=== PATIENT | male | born 1980 | race Caucasian/White ===

== ENCOUNTER 2020-02-28 10:46 | Emergency (ER) | payer OTHER, SELFPAY ==
--- NOTE | ~2020-02-28 | XR_ITS ---
EXAMINATION: XR chest 2V DATE: 02/28/2020 11:15 INDICATION: Chest pain TECHNIQUE: Portable AP view of the chest at 1110 hours COMPARISON: None available FINDINGS: There are minimal airspace opacities of the right lung base. There is no pleural effusion o r pneumothorax. The cardiomediastinal silhouette is normal. The visualized bones and soft tissues are unremarkable. IMPRESSION: 1. Right basilar airspace opacity, consistent with atelectasis versus pneumonia. Reviewed, dictated and finalized at location A. IMPRESSION: 1. Right basilar airspace opacity, consistent with atelectasis versus pneumonia .
[2020-02-28 10:37] VITALS: PULSE 110; O2SAT 99
[2020-02-28 10:48] VITALS: BP 139/87; PULSE 120; RESP 18; TEMP 37; O2SAT 95
--- NOTE | 2020-02-28 10:54 | ECG_ITS ---
Measurements Intervals [place] Rate: 120 P: 32 KS: 167 QRS: -27 QRSD: 101 T: 28 QT: 315 QTc: 446 Interpretive Statements SINUS TACHYCARDIA BORDERLINE R WAVE PROGRESSION, ANTERIOR LEADS INFERIOR INFARCT, AGE INDETERMINATE ABNORMAL ECG Electronically Signed On 02-28-2020 11:48:44 CDT by Bryce El D.O.
[2020-02-28 11:05] LABS: Basophils Absolute Auto 0.1 K/mm3 (0.0-0.1); Basophils Percent Auto 0.9 % (0.2-1.2); Eosinophils Absolute Auto 0.1 K/mm3 (0-0.3); Hematocrit 44.3 % (42.0-52.0); Immature Granulocyte Absolute 0.07 K/mm3 (0.00-0.031); Immature Granulocyte Percent A 0.9 % (0-0.5); Lymphocytes Absolute Auto 1.89 K/mm3 (0.9-3.2); Lymphocytes Percent Auto 24.5 % (18.3-44.2); Mean Corpuscular HGB Conc 33.9 g/dl (32-36); Mean Corpuscular Hemoglobin 31.3 pg (26-34); Mean Corpuscular Volume 92.3 fl (80-100); Mean Platelet Volume 8.8 fl (7.4-10.4); Monocytes Absolute Auto 0.6 K/mm3 (0.1-0.6); Monocytes Percent Auto 8.2 % (2.6-8.5); Neutrophils Percent Auto 64.5 % (45.5-73.1); Platelet Count Result 273 k/mm3 (150-375); White Blood Count 7.7 K/mm3 (4.5-10.0)
[2020-02-28 11:15] LABS: Partial Thromboplastin Time 25.2 SECONDS (22.3-36.8); Prothrombin Time 13.1 Seconds (11.1-14.7)
[2020-02-28 11:17] LABS: Blood Urea Nitrogen 8 mg/dL (9-20); Calcium 8.7 mg/dL (8.4-10.2); Carbon Dioxide 23 mmol/L (22-30); Chloride 101 mmol/L (98-107); Estimated Glomerular Filt Rate > 60; Glucose 115 mg/dL (75-110); Potassium 4.2 mmol/L (3.4-5.0); Sodium 136 mmol/L (137-145)
[2020-02-28 11:29] LABS: Troponin I < 0.012 ng/mL (0.000-0.034)
--- NOTE | 2020-02-28 13:34 | ED.CHESTPAIN ---
HPI - Chest Pain General Chief Complaint: Chest Pain <Samia Orellana PA-C - Last Filed: 02/28/20 15:16> Stated Complaint: Chest Pain <Samia Orellana PA-C - Last Filed: 02/28/20 15:16> Time Seen by Provider: 02/28/20 11:10 <Samia Orellana PA-C - Last Filed: 02/28/20 15:16> Source: patient <ALETHEA Herrera Last Filed: 02/28/20 15:16> Mode of arrival: EMS <ALETHEA Herrera Last Filed: 02/28/20 15:16> Limitations: no limitations <Samia Orellana PA-C - Last Filed: 02/28/20 15:16> History of Present Illness HPI narrative: Patient presents with chief complaint of chest pain that has been waxing and waning that is midsternal for the past 2 days. Patient states today at approximately 11 AM the pain became greater and he started having tingling in his left fingertips accompanied by dizziness. Patient denies headache, changes in vision or hearing or neurological deficits. Patient denies any radiation of pain to his jaw or left arm. Patient denies history of strokes or heart attacks. He denies family history of strokes or heart attacks. Patient denies having hypertension or smoking cigarettes. Patient denies any chest trauma. Patient denies shortness of breath, diaphoresis, nausea or vomiting. Patient states he was given 324 mg of aspirin to chew via EMS as well as 3 nitroglycerin in route which helped ease his symptoms greatly. He now just reports mild soreness to his chest and tingling to his hands. <ALETHEA Herrera Last Filed: 02/28/20 15:16> Related Data Home Medications: Home Medications Medication Instructions Recorded Confirmed No Home Medications 02/28/20 02/28/20 <ALETHEA Herrera Last Filed: 02/28/20 15:16> Allergies/Adverse Reactions: Allergies Allergy/AdvReac Type Severity Reaction Status Date / Time No Known Allergies Allergy Unverified 02/28/20 10:53 <ALETHEA Herrera Last Filed: 02/28/20 15:16> Review of Systems Review of Systems: Narrative: CONSTITUTIONAL: Denies fever, chills, or sweats. EYES: Denies visual changes, redness, or discharge. ENT: Denies rhinorrhea, congestion, sore throat, or otalgia. CARDIOVASCULAR: Reports chest pain, denies palpitations, or edema. RESPIRATORY: Denies cough or dyspnea. GASTROINTESTINAL: Denies abdominal pain, nausea, vomiting, or diarrhea. GENITOURINARY: Denies dysuria or hematuria. SKIN: Denies rash or itching. MUSCULOSKELETAL: Denies back pain, joint pain, or myalgia. NEUROLOGIC: reports left hand tingling Denies headache, numbness, dizziness, or weakness. PSYCHIATRIC: Denies anxiety or depression. <Samia Orellana PA-C - Last Filed: 02/28/20 15:16> [facility] Family History Family History: Family History (Updated 06/28/16 @ 23:21 by DOCTOR UNKNOWN) Mother Patient's mother is in good health Father Patient's father is in good health <Samia Orellana PA-C - Last Filed: 02/28/20 15:16> Social History Social History: Social History Smoking status: Never smoker Alcohol intake: current <ALETHEA Herrera Last Filed: 02/28/20 15:16> Exam Narrative: Exam Narrative: GENERAL: Well-appearing, well-nourished, and in no acute distress. HEAD: Normocephalic, atraumatic. EYES: PERRLA and EOMI. ENT: Nares clear, no rhinorrhea or epistaxis. Mucous membranes moist. Oropharynx without tonsillar hypertrophy exudate or other lesions. Bilateral TMs pearly vogt nonbulging NECK: Supple. No adenopathy or masses. No carotid bruits or JVD CHEST: Clear to auscultation. No respiratory distress. No wheezes rales or rhonchi. Not tachypneic HEART: Regular rate and rhythm. No murmur heard. Normal peripheral pulses. EXTREMITIES: Normal range of motion. No edema. No weakness noted. SKIN: Warm, dry, no rash. NEURO: No focal deficits. Alert and oriented x3. PSYCH: Normal mood and affect. <Samia Orellana PA-C - Last Filed: 02/28/20 15:16> Course Vital Signs Vital signs
[2020-02-28 14:25] LABS: Troponin I < 0.012 ng/mL (0.000-0.034)
--- NOTE | 2020-02-28 15:15 | PC.NURSE ---
denied cp at this time provider aware
[2020-02-28 15:40] VITALS: BP 156/90; PULSE 108; RESP 16; O2SAT 99
== END 2020-02-28 15:40 | disposition home or self-care (01) ==
PROVIDERS: Emergency Provider Emergency Medicine; PCP Internal Medicine
DX: R07.2 Precordial pain (principal); R00.0 Tachycardia, unspecified; R94.31 Abnormal electrocardiogram [ECG] [EKG]
CPT/HCPCS: 36415; 71046; 80048; 84484; 85025; 85610; 85730; 93005; 99284

== ENCOUNTER 2025-05-05 07:48 | Outpatient (CLI) | payer OTHER, SELFPAY ==
--- NOTE | ~2025-05-05 | US_ITS ---
Limited Abdominal Sonogram: Real-time sonographic imaging of the right upper quadrant was performed. Clinical History: Abnormal blood chemistry findings Findings: The liver appears echogenic, with no evidence of mass lesion or bile duct dilatation. Main portal vein demonstrates normal direction of flow. The gallbladder is well distended, and appears no rmal with no evidence of gallstone or wall thickening. The common bile duct measures 3 mm. The visua lized pancreas, aorta, and IVC are unremarkable. Impression: Diffuse fatty infiltration of the liver. Reviewed, dictated and finalized at location M. Impression: Diffuse fatty infiltration of the liver.
== END 2025-05-05 07:49 | disposition home or self-care (01) ==
PROVIDERS: PCP Internal Medicine; Visit Provider Internal Medicine
DX: R79.89 Other specified abnormal findings of blood chemistry (principal); K76.0 Fatty (change of) liver, not elsewhere classified
CPT/HCPCS: 76705

== ENCOUNTER 2025-08-23 20:36 | Observation (INO) | payer OTHER, SELFPAY ==
--- NOTE | ~2025-08-23 | XR_ITS ---
Examination: XR chest 1V portable Clinical History: epigastric pain, ulcer Comparison: 02/28/2020 Technique: Portable AP Findings: Heart size normal. Lungs clear. No acute bony abnormality. IMPRESSION: 1. No acute cardiopulmonary findings given portable technique. Reviewed, dictated and finalized at location R.
[2025-08-23 20:38] VITALS: BP 149/105; PULSE 115; RESP 18; TEMP 36.7; O2SAT 100
--- NOTE | 2025-08-23 20:42 | ECG_ITS ---
Test Date: 2025-08-23 20:45:03 Measurements Intervals [place] Rate: 98 P: 52 [place]: 150 QRS: 3 QRSD: 99 T: 39 QT: 335 QTc: 428 Interpretive Statements SINUS RHYTHM NORMAL ELECTROCARDIOGRAM No previous ECG available for comparison Electronically Signed On 08-24-2025 07:29:12 CDT by Scott Arrieta M.D.
[2025-08-23 21:01] LABS: Hematocrit 33.6 % (42.0-52.0); Hemoglobin 11.5 g/dL (14.0-18.0); Immature Granulocyte Percent A 1.1 % (0-0.5); Lymphocytes Absolute Auto 2.02 K/mm3 (0.9-3.2); Mean Corpuscular HGB Conc 34.2 g/dl (32-36); Mean Corpuscular Hemoglobin 31.9 pg (26-34); Mean Corpuscular Volume 93.3 fl (80-100); Nucleated Red Blood Cells Absolute Auto 0.000 K/mm3 (0.0-0.012); Nucleated Red Blood Cells Perc 0.0 % (0.0-0.2); Platelet Count Result 333 k/mm3 (150-375); Red Blood Count 3.60 M/mm3 (4.6-6.20); White Blood Count 12.2 K/mm3 (4.5-10.0)
[2025-08-23 21:06] LABS: Alanine Aminotransferase 37 U/L (6-50); Albumin Level 4.4 g/dL (3.5-5.1); Alkaline Phosphatase 77 U/L (38-126); Anion Gap 9 mmol/L (4-12); Aspartate Amino Transferase 35 U/L (17-59); Bilirubin,Total 0.3 mg/dL (0.2-1.3); Blood Urea Nitrogen 10 mg/dL (9-20); Calcium 9.3 mg/dL (8.4-10.2); Carbon Dioxide 25 mmol/L (22-30); Chloride 101 mmol/L (98-107); Estimated CRCL calculation 113 ml/min; Estimated Glomerular Filt Rate > 60; Glucose 109 mg/dL (65-110); Potassium 4.2 mmol/L (3.4-5.0); Sodium 135 mmol/L (137-145); Total Protein 7.5 g/dL (6.3-8.2)
[2025-08-23 21:11] LABS: INR 1.1; Prothrombin Time 14.3 Seconds (11.1-14.7)
[2025-08-23 21:12] LABS: Partial Thromboplastin Time 27.6 Seconds (22.3-36.8)
[2025-08-23 21:18] LABS: Troponin I < 0.012 ng/mL (0.000-0.034)
--- NOTE | 2025-08-23 23:40 | ECG_ITS ---
Test Date: 2025-08-23 23:48:24 Measurements Intervals [place] Rate: 75 P: 36 CT: 163 QRS: 7 QRSD: 90 T: 27 QT: 383 QTc: 430 Interpretive Statements SINUS RHYTHM NORMAL ELECTROCARDIOGRAM Compared to ECG 08/23/2025 20:45:03 No significant changes Electronically Signed On 08-24-2025 07:32:25 CDT by Scott Arrieta M.D.
[2025-08-23 23:54] VITALS: BP 133/87; PULSE 81; RESP 18; TEMP 36.9; O2SAT 100
[2025-08-24] VITALS (19 sets, daily range): BP systolic 112–153; BP diastolic 67–99; PULSE 67–95; RESP 15–23; TEMP 35.9–36.9; O2SAT 96–100; BMI 24.8
--- OUTSIDE RECORDS SUMMARY | 2025-08-24 00:15 | XMS_ITS | Patient Health Record ---
Author Organization [facility] Address [address] [place] [address] Care Team Providers Care Wood Sawyer Name Role Phone Moy Farooq Primary Care Provider [phone] Reason For Referral No Information Immunizations Vaccine Route Administration Date Status Comme nts COVID-19 Moderna 1ST IM Intramuscular 02/08/2021 Administe red COVID-19 Moderna 2nd IM Intramuscular 03/08/2021 Administe red Plan Of Treatment No Information Insurance Providers Payer Name Payer Address Payer Phone Subscriber Number Group Number Insured Name Patient Relationship to Insured Coverage Start Date Coverage End Date [facility] [address] [place] [address] [id number] Harry Romero Self - patient is the insured
[2025-08-24 00:23] LABS: Troponin I < 0.012 ng/mL (0.000-0.034)
[2025-08-24] MEDS: PANTOPRAZOLE SODIUM IV 40 MG VIAL 80 MG IV PUSH (00:28)
[2025-08-24] MEDS: LACTATED RINGERS 1,000 ML 999 ML IV CONT (00:28)
[2025-08-24] MEDS: SUCRALFATE SUSP 100 MG/ML 10 ML UDC 1000 MG PO (01:34)
[2025-08-24] MEDS: LACTATED RINGERS 1,000 ML 125 ML IV CONT ×3 (01:41→16:53)
--- NOTE | 2025-08-24 01:48 | PM.IMHP ---
H&P: HPI History of Present Illness Date/Time: 08/24/25 01:48 Chief Complaint: Dark stool Narrative: 45-year-old male with PMH alcohol use, GERD, hypertension, history of transaminitis presents to [facility] ER on 08/24/2025 reporting dark stools starting 3 days prior. He has never had this before, does not know of peptic ulcer disease history, has never had endoscopy. On the day of admission developed burning and pain on the left side of his stomach just below the ribs. He did not vomit, denied fever, denied chest pain otherwise. Hemoglobin 11.5, it was 16.1 on 04/07/2025. At that time he had mild transaminitis with AST 50, ALT 50, was seen by his PCP who believed this to be due to alcohol use. The patient reports drinking about 4 beers per day. He has a history of GERD but does not take a PPI. GI consulted from the ER. He was given Protonix 80 mg IV x1, 1 L lactated Ringer bolus, sucralfate 1000 mg p.o. x1. Afterwards, his pain had resolved and he was resting comfortably. Review of Systems Review of Systems: All systems reviewed & are unremarkable except as noted in HPI and below (Subjective) [facility] Family History Family History Mother Patient's mother is in good health Father Patient's father is in good health Social History Social History (Updated 04/02/23 @ 15:07 by Haley Wayne MA) Smoking status: Never smoker Second hand tobacco smoke exposure: No Alcohol intake: current Drinks per week: 28 Substance use: never Lack of Transportation: No Lack of Food: Never True Current Housing: I Have Housing Concerned About Future Housing: No Difficulty Paying Gas/Electric Bills: No Difficulty Paying for Meds: No Currently Unemployed: No Education: Bachelor's Degree Difficulty w/ Childcare or Family Care: No Meds Home Medications and Allergies Home Medications ?Medication ?Instructions ?Recorded ?Confirmed ?Type lisinopril 20 mg tablet 20 mg PO DAILY #90 tabs 12/08/24 04/17/25 Rx Allergies Allergy/AdvReac Type Severity Reaction Status Date / Time No Known Allergies Allergy Verified 04/13/24 15:09 Vital Signs Vital Signs - 24 hr 08/23/25 20:38 08/23/25 23:54 Temperature 98.1 F 98.4 F Pulse Rate 115 H 81 Respiratory Rate 18 18 Blood Pressure 149/105 H 133/87 Pulse Oximetry 100 100 Oxygen Delivery Room Air Exam Const: General: comfortable and no acute distress Other: A&O x3 HENMT: Mouth: Yes moist mucous membranes Other: No lesions Eyes: Pupils: Equal, round and reactive pupils present Neck: Neck: supple Resp: Effort & Inspection: normal respiratory effort Auscultation: clear to auscultation bilaterally Cardio: Rate: regular rate Rhythm: regular rhythm Heart sounds: no murmurs GI: Inspection: non-distended GI Palp: Yes Soft to palpation, No Tenderness to palpation present (GI) and No Guarding due to palpation present (GI) Auscultation: normal bowel sounds : General: Yes bladder normal to palpation Neuro: Motor exam (neuro): 5/5 motor strength present throughout Extrem: General: no edema H&P: Results Labs Labs: Short CBC 08/23/25 Range/Units 20:49 WBC 12.2 H (4.5-10.0) K/mm3 Hgb 11.5 L D (14.0-18.0) g/dL Hct 33.6 L (42.0-52.0) % Plt Count 333 (150-375) k/mm3 BMP 08/23/25 20:49 Sodium 135 L Potassium 4.2 Chloride 101 Carbon Dioxide 25 BUN 10 Creatinine 0.80 Glucose 109 Calcium 9.3 Cardiac Enzymes 08/23/25 08/23/25 Range/Units 20:49 23:53 Troponin I < 0.012 < 0.012 (0.000-0.034) ng/mL Liver Function 08/23/25 Range/Units 20:49 Total Bilirubin 0.3 (0.2-1.3) mg/dL AST 35 (17-59) U/L ALT 37 (6-50) U/L Alkaline Phosphatase 77 (38-126) U/L Albumin 4.4 (3.5-5.1) g/dL Assessment and Plan Assessment and plan (1) Alcohol use: Code(s): F10.90 - Alcohol use, unspecified, uncomplicated Status: Acute (2) Essential hypertension: Code(s): I10 - Essential (primary) hypertension Status: Acute (3) Upper GI bleed: Code(s): K92.2 - Gastrointestinal hemorrhage, unspecified Status: Acute (4) Anemia: Code(s): D64.9 - Anemia, unspecified Status: Acute Plan 45-year-old male with PMH alcohol use, GERD, hypertension, history of transaminitis presents to [facility] ER on 08/24/2025 reporting dark stools starting 3 days prior. He has never had this before, does not know of peptic ulcer disease history, has never had endoscopy. On the day of admission developed burning and pain on the left side of his stomach just below the ribs. He did not vomit, denied fever, denied chest pain otherwise. Hemoglobin 11.5, it was 16.1 on 04/07/2025. At that time he had mild transaminitis with AST 50, ALT 50, was seen by his PCP who believed this to be due to alcohol use. The patient reports drinking about 4 beers per day. He has a history of GERD but does not take a PPI. GI consulted from the ER. He was given Protonix 80 mg IV x1, 1 L lactated Ringer bolus, sucralfate 1000 mg p.o. x1. Afterwards, his pain had resolved and he was resting comfortably. ----- Upper GI bleed with acute/subacute anemia. Continue to trend hemoglobin. Continue Protonix 40 mg IV b.i.d.. Continue lactated Ringer's at 125 cc/hour. Zofran and Tylenol p.r.n.. NPO, awaiting GI consultation, anticipate endoscopy. Admit to medical floor telemetry. The patient has been counseled about his alcohol use. Advised to cut down or abstain entirely, the patient reported understanding and agreed. He does not take NSAIDs. Will hold his [employer] lisinopril in the setting of GI bleed. Monitor hemodynamics. ----- Patient wishes to be full code. Independent prior to admission. Lactated Ringer's, NPO. SCDs. Hospitalist [facility] Advance Care Plan I have confirmed that the patient's Advanced Care Plan is present, code status is documented, or surrogate decision maker is listed in patient medical record.: Yes Medication Reconciliation I have utilized all available resources to obtain, update and review the patients current medications (includes all prescriptions, OTC, herbals, cannabis, and nutritional supplements).: Yes
[2025-08-24 01:57] LABS: Hematocrit 30.6 % (42.0-52.0); Hemoglobin 10.5 g/dL (14.0-18.0)
--- NOTE | 2025-08-24 01:57 | ED_ITS ---
HPI - GI Bleed General Chief complaint: GI Bleed Stated complaint: bleeding ulcer Time Seen by Provider: 08/24/25 00:07 History of Present Illness HPI Narrative: 45-year-old male with no pertinent past medical history presenting to the emergency department with epigastric left-sided abdominal discomfort associated with eating. He has also been having 4 days of dark tarry stools that are thick and sticky in quality. No history of GI bleeding before. He does endorse ?social drinking ?but endorses up to 4 beers a day. Denies any NSAID use or any chronic anti-inflammatories or chronic gastritis/GERD. Has been having indigestion sensations for last few weeks associated with eating. States whenever eat a meal he gets gnawing epigastric abdominal discomfort that slowly subsides. Went to urgent care yesterday as he was feeling lightheaded and dizzy while driving and was found to be anemic referred to the emergency department. Denies any history of GI bleeding or known ulcerative disease. Was otherwise in his normal state of health. Related Data Allergies Allergy/AdvReac Type Severity Reaction Status Date / Time No Known Allergies Allergy Verified 04/13/24 15:09 Review of Systems 2 Review of Systems: As reviewed above in HPI [facility] Family History Family History Mother Patient's mother is in good health Father Patient's father is in good health Social History Social History Smoking status: Never smoker Second hand tobacco smoke exposure: No Alcohol intake: current Drinks per week: 28 Substance use: never Lack of Transportation: No Lack of Food: Never True Current Housing: I Have Housing Concerned About Future Housing: No Difficulty Paying Gas/Electric Bills: No Difficulty Paying for Meds: No Currently Unemployed: No Education: Bachelor's Degree Difficulty w/ Childcare or Family Care: No Exam 2 Narrative: GENERAL: [Well-appearing, well-nourished, and in no acute distress.] HEAD: [Normocephalic, atraumatic.] EYES: [PERRLA and EOMI.] ENT: Nares clear, no rhinorrhea or epistaxis. Mucous membranes moist. NECK: Supple. CHEST: [Clear to auscultation. No respiratory distress.] HEART: Mildly tachycardic but regular rhythm. No murmur heard. [Normal peripheral pulses.] ABDOMEN: [Soft, nondistended], [nontender], [No rigidity or guarding] EXTREMITIES: Normal range of motion. [No edema.] SKIN: Warm, dry, no rash. NEURO: [No focal deficits]. Alert and oriented [x3.] PSYCH: [Normal mood and affect.] Course Vital Signs Vital signs: Vital Signs Temperature 36.7 C 08/23/25 20:38 Pulse Rate 115 H 08/23/25 20:38 Respiratory Rate 18 08/23/25 20:38 Blood Pressure 149/105 H 08/23/25 20:38 Pulse Oximetry 100 08/23/25 20:38 Oxygen Delivery Room Air 08/23/25 20:38 Temperature 36.9 C 08/23/25 23:54 Pulse Rate 81 08/23/25 23:54 Respiratory Rate 18 08/23/25 23:54 Blood Pressure 133/87 08/23/25 23:54 Pulse Oximetry 100 08/23/25 23:54 Oxygen Delivery Room Air 08/23/25 20:38 MDM - GI Bleed MDM Narrative Medical decision making narrative: 45-year-old male with no pertinent past medical history presenting to the emergency department with epigastric left-sided abdominal discomfort associated with eating. He has also been having 4 days of dark tarry stools that are thick and sticky in quality. No history of GI bleeding before. He does endorse ?social drinking ?but endorses up to 4 beers a day. Denies any NSAID use or any chronic anti-inflammatories or chronic gastritis/GERD. Has been having indigestion sensations for last few weeks associated with eating. States whenever eat a meal he gets gnawing epigastric abdominal discomfort that slowly subsides. Went to urgent care yesterday as he was feeling lightheaded and dizzy while driving and was found to be anemic referred to the emergency department. Denies any history of GI bleeding or known ulcerative disease. Was otherwise in his normal state of health. Patient is overall well-appearing not any acute distress. Rates 1 at 10 epigastric abdominal discomfort right now. Mildly tachycardic but no significant blood pressure concerns, hemodynamically stable. No tachypnea, hypoxemia or fever. Symptoms very consistent with peptic ulcer disease or bleeding duodenal/gastric ulcer. Likely from alcohol abuse. Basic laboratory studies were ordered he was given Protonix 80 mg IV as well as fluids. Sucralfate ordered. Patient's labs show anemia but otherwise no cardiac abnormalities, normal troponin. No EKG changes. No significant leukocytosis or liver/kidney dysfunction. Hemoglobin 11.5 which is a precipitous drop from his previous normal hemoglobin to the 15-16 range. Repeating H&H and trending his levels. Discussed the case with pulmonary physical therapist Dr. Finch who agreed for endoscopy on inpatient basis based on history and physical exam findings. Spoke to the hospitalist Dr. Lane who accepted the patient to a telemetry monitored bed with repeat H&H pending. Patient comfortable the plan and safely admitted at this time. Medical Records Attestation: I reviewed the patient's medical records. Lab Data Attestation: I reviewed the patient's lab results. 08/23/25 20:49 08/23/25 20:49 Labs: Lab Results 08/23/25 08/23/25 Range/Units 20:49 23:53 WBC 12.2 H (4.5-10.0) K/mm3 RBC 3.60 L (4.6-6.20) M/mm3 Hgb 11.5 L D (14.0-18.0) g/dL Hct 33.6 L (42.0-52.0) % MCV 93.3 (80-100) fl MCH 31.9 (26-34) pg MCHC 34.2 (32-36) g/dl RDW 12.3 (11.5-14.5) % Plt Count 333 (150-375) k/mm3 MPV 9.0 (7.4-10.4) fl Immature Gran % (Auto) 1.1 H (0-0.5) % Neut % (Auto) 73.5 H (45.5-73.1) % Lymph % (Auto) 16.6 L (18.3-44.2) % [place] % (Auto) 7.6 (2.6-8.5) % Eos % (Auto) 0.5 (0-4.4) % Baso % (Auto) 0.7 (0.2-1.2) % Lymph # (Auto) 2.02 (0.9-3.2) K/mm3 [place] # (Auto) 0.9 H (0.1-0.6) K/mm3 Eos # (Auto) 0.1 (0-0.3) K/mm3 Baso # (Auto) 0.1 (0.0-0.1) K/mm3 Abs Immat Gran (auto) 0.14 H (0.00-0.031) K/mm3 Absolute Neuts (auto) 9.0 H (1.3-6.7) K/mm3 Absolute Nucleated RBC 0.000 (0.0-0.012) K/mm3 Nucleated RBC % 0.0 (0.0-0.2) % PT 14.3 (11.1-14.7) Seconds INR 1.1 APTT 27.6 (22.3-36.8) Seconds Sodium 135 L (137-145) mmol/L Potassium 4.2 (3.4-5.0) mmol/L Chloride 101 (98-107) mmol/L Carbon Dioxide 25 (22-30) mmol/L Anion Gap 9 (4-12) mmol/L BUN 10 (9-20) mg/dL Creatinine 0.80 (0.7-1.3) mg/dL Estim Creat Clear Calc 113 ml/min Estimated GFR > 60 (59 - ) Glucose 109 (65-110) mg/dL Calcium 9.3 (8.4-10.2) mg/dL Total Bilirubin 0.3 (0.2-1.3) mg/dL AST 35 (17-59) U/L ALT 37 (6-50) U/L Alkaline Phosphatase 77 (38-126) U/L Troponin I < 0.012 < 0.012 (0.000-0.034) ng/mL Total Protein 7.5 (6.3-8.2) g/dL Albumin 4.4 (3.5-5.1) g/dL Blood Type O Positive Antibody Screen Negative Imaging Data Attestation: I personally reviewed and interpreted this imaging study as follows: My impression: No free air or pneumonia. No pneumothorax. Discharge Plan Discharge Clinical Impression: UGIB (upper gastrointestinal bleed), Acute blood loss anemia Patient Disposition: Still a Patient Condition: Stable Time of Disposition: 02:01
[2025-08-24 06:07] LABS: Hematocrit 31.1 % (42.0-52.0); Hemoglobin 10.6 g/dL (14.0-18.0); Immature Granulocyte Percent A 1.0 % (0-0.5); Lymphocytes Absolute Auto 1.94 K/mm3 (0.9-3.2); Mean Corpuscular HGB Conc 34.1 g/dl (32-36); Mean Corpuscular Hemoglobin 32.1 pg (26-34); Mean Corpuscular Volume 94.2 fl (80-100); Nucleated Red Blood Cells Absolute Auto 0.000 K/mm3 (0.0-0.012); Nucleated Red Blood Cells Perc 0.0 % (0.0-0.2); Platelet Count Result 287 k/mm3 (150-375); Red Blood Count 3.30 M/mm3 (4.6-6.20); White Blood Count 8.2 K/mm3 (4.5-10.0)
[2025-08-24 06:27] LABS: Anion Gap 4 mmol/L (4-12); Blood Urea Nitrogen 9 mg/dL (9-20); Calcium 8.8 mg/dL (8.4-10.2); Carbon Dioxide 27 mmol/L (22-30); Chloride 104 mmol/L (98-107); Estimated CRCL calculation 102 ml/min; Estimated Glomerular Filt Rate > 60; Glucose 101 mg/dL (65-110); Magnesium 2.3 mg/dL (1.6-2.3); Potassium 4.5 mmol/L (3.4-5.0); Sodium 135 mmol/L (137-145)
--- NOTE | 2025-08-24 08:03 | P.CONGI_ITS ---
Assessment and Plan Assessment and plan (1) UGIB (upper gastrointestinal bleed): Code(s): K92.2 - Gastrointestinal hemorrhage, unspecified Status: Acute Assessment and Plan: will proceed with egd today, differential ulcer, avm, esophageal lesion (he had some dysphagia) iv protonix and fluids for now monitor for more signs of bleeding more recommendations after egd (2) Melena: Code(s): K92.1 - Melena Status: Acute Assessment and Plan: egd markus (3) Esophageal reflux disease: Code(s): K21.9 - Gastro-esophageal reflux disease without esophagitis Status: Acute (4) Acute blood loss anemia: Code(s): D62 - Acute posthemorrhagic anemia Status: Acute Assessment and Plan: egd today never had colonoscopy, we can arrange as outpatient (5) Alcohol use: Code(s): F10.90 - Alcohol use, unspecified, uncomplicated Status: Acute (6) Essential hypertension: Code(s): I10 - Essential (primary) hypertension Status: Acute GI Consult Note Consult date/time: 08/24/25 08:03 Reason for consult: gib HPI: Harry Romero is a 45 year old male with history of hypertension on med here with new onset of dark tarry stools. This started 3 days prior. He has never had this before, does not know of peptic ulcer disease history, has never had endoscopy. Also was feeling dizzy and lightheaded, he had about 3 episodes one each day and having dyspepsia and abdominal discomfort. He has intermittent reflux but not taking any medication, in few occasions also had dysphagia to solids. ER showed Hemoglobin 11.5, it was 16.1 on 04/07/2025. At that time he had mild transaminitis with AST 50, ALT 50, was seen by his PCP who believed this to be due to alcohol use. He drinks about 4 beers per day. He was given Protonix 80 mg IV x1, 1 L lactated Ringer bolus, sucralfate 1000 mg p.o. x1. Review of Systems 2 Constitutional: Constitutional: Denies headache(s) Eyes: Eyes: Denies blurry vision ENT: Reports Normal hearing present, Denies headache(s) and Denies neck pain Cardiovascular: Cardiovascular: Denies chest pain and Denies dyspnea Respiratory: Respiratory: Denies dyspnea Gastrointestinal: Gastrointestinal: Reports melena Genitourinary: Genitourinary: Denies dysuria Musculoskeletal: Musculoskeletal: Denies neck pain Integumentary/Breasts: Skin/Breast: Denies dry skin Neurologic: Reports Normal hearing present and Denies headache(s) [facility] Past Medical History Medical History (Updated 08/24/25 @ 08:07 by Raffi Merritt MD) Melena Family History Family History Mother Patient's mother is in good health Father Patient's father is in good health Social History Social History Smoking status: Never smoker Second hand tobacco smoke exposure: No Alcohol intake: current Drinks per week: 28 Substance use: never Lack of Transportation: No Lack of Food: Never True Current Housing: I Have Housing Concerned About Future Housing: No Difficulty Paying Gas/Electric Bills: No Difficulty Paying for Meds: No Currently Unemployed: No Education: Bachelor's Degree Difficulty w/ Childcare or Family Care: No Meds Home Medications and Allergies Home Medications ?Medication ?Instructions ?Recorded ?Confirmed ?Type lisinopril 20 mg tablet 20 mg PO DAILY #90 tabs 07/2504/17/25 Rx Allergies Allergy/AdvReac Type Severity Reaction Status Date / Time No Known Allergies Allergy Verified 04/13/24 15:09 Vital Signs Vital Signs - 24 hr 08/23/25 20:38 08/23/25 23:54 08/24/25 02:24 Temperature 98.1 F 98.4 F Pulse Rate 115 H 81 88 Respiratory Rate 18 18 18 Blood Pressure 149/105 H 133/87 112/81 Pulse Oximetry 100 100 99 Oxygen Delivery Room Air 08/24/25 04:00 08/24/25 05:55 Temperature 97.5 F L Pulse Rate 89 95 Respiratory Rate 18 18 Blood Pressure 121/76 122/77 Pulse Oximetry 99 100 Oxygen Delivery Exam 2 Const: General: comfortable and no acute distress HENMT: Face/Nose/Sinus: Normal nares present Eyes: General: appearance normal, both eyes and all related structures Neck: Neck: no JVD Resp: Auscultation: clear to auscultation bilaterally Cardio: Rate: regular rate Rhythm: regular rhythm GI: Inspection: non-distended GI Palp: Yes Soft to palpation Skin: General skin exam: normal color Neuro: General: gait normal Speech: normal speech Extrem: General: normal to inspection Psych: Mental Status: mental status grossly normal Results Labs 08/24/25 05:58 08/24/25 05:58 Labs: Short CBC 08/23/25 08/24/25 08/24/25 Range/Units 20:49 01:52 05:58 WBC 12.2 H 8.2 (4.5-10.0) K/mm3 Hgb 11.5 L D 10.5 L 10.6 L (14.0-18.0) g/dL Hct 33.6 L 30.6 L 31.1 L (42.0-52.0) % Plt Count 333 287 (150-375) k/mm3 [facility] 08/23/25 08/24/25 20:49 05:58 Sodium 135 L 135 L Potassium 4.2 4.5 Chloride 101 104 Carbon Dioxide 25 27 BUN 10 9 Creatinine 0.80 0.89 Glucose 109 101 Calcium 9.3 8.8 Cardiac Enzymes 08/23/25 08/23/25 Range/Units 20:49 23:53 Troponin I < 0.012 < 0.012 (0.000-0.034) ng/mL Liver Function 08/23/25 Range/Units 20:49 Total Bilirubin 0.3 (0.2-1.3) mg/dL AST 35 (17-59) U/L ALT 37 (6-50) U/L Alkaline Phosphatase 77 (38-126) U/L Albumin 4.4 (3.5-5.1) g/dL
--- NOTE | 2025-08-24 08:34 | P.PNIM_ITS ---
Progress Note: A&P Assessment and Plan (1) Upper GI bleed: Code(s): K92.2 - Gastrointestinal hemorrhage, unspecified Status: Acute Assessment and Plan: * Continue to trend hemoglobin * Continue Protonix 40 mg IV b.i.d. * Continue lactated Ringer's at 125 cc/hour * Zofran and Tylenol p.r.n * Monitor for bloody bowel movements,chest pain,SOB or dizziness/lightheadedness * DVT Px: SCDs * Avoid anti-coagulations * NPO for EGD * EGD results: * Reflux esophagitis, hiatal hernia, unspecified gastric ulcer * GI recommends switching IV to oral pantoprazole 40 mg daily * Follow-up GI clinic in the outpatient setting * Avoid caffeine, spicy foods, chocolate, mints, alcohol, rich foods, red sauces * Discharge likely tomorrow (2) Anemia: Code(s): D64.9 - Anemia, unspecified Status: Acute Assessment and Plan: * See above (3) Alcohol use: Code(s): F10.90 - Alcohol use, unspecified, uncomplicated Status: Acute Assessment and Plan: * The patient has been counseled about his alcohol use. Advised to cut down or abstain entirely, the patient reported understanding and agreed. (4) Essential hypertension: Code(s): I10 - Essential (primary) hypertension Status: Acute Assessment and Plan: * Patient's blood pressure was reviewed on 08/24 * Blood pressure remains well controlled * Will hold his [employer] lisinopril in the setting of GI bleed Subjective Date/time seen: 08/24/25 08:34 Interval history: 45-year-old male with PMH alcohol use, GERD, hypertension, history of transaminitis presents to [facility] ER on 08/24/2025 reporting dark stools starting 3 days prior. He has never had this before, does not know of peptic ulcer disease history, has never had endoscopy. 08/24/2025 Patient sitting comfortably in bed at time of examination. Patient just recently came back from obtaining an EGD which showed severe erosive esophagitis. He is doing well postprocedure. They recommend switching IV to oral pantoprazole 40 mg once daily with discharge tomorrow. Patient is amenable to this plan and has no concerns at this time. Review of Systems Review of Systems: All systems reviewed & are unremarkable except as noted in HPI and below (Subjective) Exam Const: General: comfortable and no acute distress Other: A&O x3 HENMT: Mouth: Yes moist mucous membranes Other: No lesions Eyes: Pupils: Equal, round and reactive pupils present Neck: Neck: supple Resp: Effort & Inspection: normal respiratory effort Auscultation: clear to auscultation bilaterally Cardio: Rate: regular rate Rhythm: regular rhythm Heart sounds: no murmurs GI: Inspection: non-distended Auscultation: normal bowel sounds : General: Yes bladder normal to palpation Neuro: Cranial nerves: Yes Equal, round and reactive pupils present Motor exam (neuro): 5/5 motor strength present throughout Extrem: General: no edema Objective Data Vital Signs Vital Signs: Vital Signs - 24 hr 08/23/25 20:38 08/23/25 23:54 08/24/25 02:24 Temperature 98.1 F 98.4 F Pulse Rate 115 H 81 88 Respiratory Rate 18 18 18 Blood Pressure 149/105 H 133/87 112/81 Pulse Oximetry 100 100 99 Oxygen Delivery Room Air 08/24/25 04:00 08/24/25 05:55 Temperature 97.5 F L Pulse Rate 89 95 Respiratory Rate 18 18 Blood Pressure 121/76 122/77 Pulse Oximetry 99 100 Oxygen Delivery Intake/Output Intake/Output: Intake & Output 08/21/25 08/22/25 08/23/25 08/24/25 23:59 23:59 23:59 23:59 Intake Total 1999 Balance 1999 Meds/Results Medications: Active Medications Generic Name Dose Route Start Last Admin Trade Name Freq PRN Reason Stop Dose Admin Acetaminophen 650 mg 08/24/25 01:19 Acetaminophen 325 Mg Tablet PO Q4H PRN Mild Pain (1-3) or Fever Lactated Ringer's 1,000 mls @ 125 mls/hr 08/24/25 01:20 08/24/25 06:24 Lr - Lactated Ringers Iv IV CONT Infused .Q8H LETY Infusion Ondansetron HCl 4 mg 08/24/25 01:19 Ondansetron Inj 4 Mg/2 Ml Vial IV PUSH Q4H PRN Nausea Pantoprazole Sodium 40 mg 08/24/25 09:00 Pantoprazole Sodium Iv 40 Mg Vial IV PUSH Q12HR [facility] Radiology Results: ITS Impressions Chest X-Ray 08/24/25 06:15 IMPRESSION: 1. No acute cardiopulmonary findings given portable technique. Labs Labs: Laboratory Results - last 24 hr 08/23/25 08/23/25 08/24/25 20:49 23:53 01:52 WBC 12.2 H RBC 3.60 L Hgb 11.5 L D 10.5 L Hct 33.6 L 30.6 L MCV 93.3 MCH 31.9 MCHC 34.2 RDW 12.3 Plt Count 333 MPV 9.0 Immature Gran % (Auto) 1.1 H Neut % (Auto) 73.5 H Lymph % (Auto) 16.6 L [place] % (Auto) 7.6 Eos % (Auto) 0.5 Baso % (Auto) 0.7 Lymph # (Auto) 2.02 [place] # (Auto) 0.9 H Eos # (Auto) 0.1 Baso # (Auto) 0.1 Abs Immat Gran (auto) 0.14 H Absolute Neuts (auto) 9.0 H Absolute Nucleated RBC 0.000 Nucleated RBC % 0.0 PT 14.3 INR 1.1 APTT 27.6 Sodium 135 L Potassium 4.2 Chloride 101 Carbon Dioxide 25 Anion Gap 9 BUN 10 Creatinine 0.80 Estim Creat Clear Calc 113 Estimated GFR > 60 Glucose 109 Calcium 9.3 Magnesium Total Bilirubin 0.3 AST 35 ALT 37 Alkaline Phosphatase 77 Troponin I < 0.012 < 0.012 Total Protein 7.5 Albumin 4.4 Blood Type O Positive Antibody Screen Negative 08/24/25 05:58 WBC 8.2 RBC 3.30 L Hgb 10.6 L Hct 31.1 L MCV 94.2 MCH 32.1 MCHC 34.1 RDW 12.3 Plt Count 287 MPV 8.8 Immature Gran % (Auto) 1.0 H Neut % (Auto) 63.6 Lymph % (Auto) 23.6 [place] % (Auto) 9.5 H Eos % (Auto) 1.3 Baso % (Auto) 1.0 Lymph # (Auto) 1.94 [place] # (Auto) 0.8 H Eos # (Auto) 0.1 Baso # (Auto) 0.1 Abs Immat Gran (auto) 0.08 H Absolute Neuts (auto) 5.2 Absolute Nucleated RBC 0.000 Nucleated RBC % 0.0 PT INR APTT Sodium 135 L Potassium 4.5 Chloride 104 Carbon Dioxide 27 Anion Gap 4 BUN 9 Creatinine 0.89 Estim Creat Clear Calc 102 Estimated GFR > 60 Glucose 101 Calcium 8.8 Magnesium 2.3 Total Bilirubin AST ALT Alkaline Phosphatase Troponin I Total Protein Albumin Blood Type Antibody Screen Quality VTE Prophylaxis VTE prophylaxis: mechanical ordered
[2025-08-24] MEDS: PANTOPRAZOLE SODIUM IV 40 MG VIAL IV PUSH (09:39)
--- NOTE | 2025-08-24 12:43 | ADMGEN ---
This patient, Harry Romero, was admitted to 3 [facility] Surg Room 300-01. Patient/family oriented to hospital policies and general routines including ID bracelet, bed and alarms, visiting hours, pain management, procedures, bathroom and other care routines, personal items, smoking policy, room service/diet, and visiting hours. Information on how to activate the Rapid Response Team has been discussed. Patient/Family are encouraged to report perceived risks to care and to ask questions if they do not understand what they are told or what they should do.
[2025-08-24] MEDS: LACTATED RINGERS 1,000 ML 150 ML IV CONT (13:55)
--- NOTE | 2025-08-24 14:01 | WPDANESEPPF ---
Anes - Initial Pre Proc Eval Procedure: Operation Date: 08/24/25 11:30 Proposed Procedures p Esophagogastroduodenoscopy - Anoop Peterson MD Date/Time: 08/24/25 14:01 Surgeon: Mary Lane MD Pre Op Diagnosis: UGIB Patient Data Age: 45 Gender: M Height: 1.83 m Weight: 83.1 kg Last Vital Signs Temp 36.9 C 08/24/25 13:56 Pulse 76 08/24/25 13:56 Resp 16 08/24/25 13:56 BP 142/84 H 08/24/25 13:56 Pulse Ox 100 08/24/25 13:56 O2 Del Method Room Air 08/24/25 13:56 Allergies Allergy/AdvReac Type Severity Reaction Status Date / Time No Known Allergies Allergy Verified 08/24/25 14:00 Home Medications ?Medication ?Instructions ?Recorded ?Confirmed ?Type lisinopril 20 mg tablet 20 mg PO DAILY #90 tabs 12/08/24 08/24/25 Rx Laboratory Tests 08/23/25 08/23/25 08/24/25 20:49 23:53 01:52 WBC 12.2 H K/mm3 (4.5-10.0) RBC 3.60 L M/mm3 (4.6-6.20) Hgb 11.5 L D g/dL 10.5 L g/dL (14.0-18.0) (14.0-18.0) Hct 33.6 L % 30.6 L % (42.0-52.0) (42.0-52.0) MCV 93.3 fl (80-100) MCH 31.9 pg (26-34) MCHC 34.2 g/dl (32-36) RDW 12.3 % (11.5-14.5) Plt Count 333 k/mm3 (150-375) MPV 9.0 fl (7.4-10.4) Immature Gran % (Auto) 1.1 H % (0-0.5) Neut % (Auto) 73.5 H % (45.5-73.1) Lymph % (Auto) 16.6 L % (18.3-44.2) [place] % (Auto) 7.6 % (2.6-8.5) Eos % (Auto) 0.5 % (0-4.4) Baso % (Auto) 0.7 % (0.2-1.2) Lymph # (Auto) 2.02 K/mm3 (0.9-3.2) [place] # (Auto) 0.9 H K/mm3 (0.1-0.6) Eos # (Auto) 0.1 K/mm3 (0-0.3) Baso # (Auto) 0.1 K/mm3 (0.0-0.1) Abs Immat Gran (auto) 0.14 H K/mm3 (0.00-0.031) Absolute Neuts (auto) 9.0 H K/mm3 (1.3-6.7) Absolute Nucleated RBC 0.000 K/mm3 (0.0-0.012) Nucleated RBC % 0.0 % (0.0-0.2) PT 14.3 Seconds (11.1-14.7) INR 1.1 APTT 27.6 Seconds (22.3-36.8) Sodium 135 L mmol/L (137-145) Potassium 4.2 mmol/L (3.4-5.0) Chloride 101 mmol/L (98-107) Carbon Dioxide 25 mmol/L (22-30) Anion Gap 9 mmol/L (4-12) BUN 10 mg/dL (9-20) Creatinine 0.80 mg/dL (0.7-1.3) Estim Creat Clear Calc 113 ml/min Estimated GFR > 60 (59 - ) Glucose 109 mg/dL (65-110) Calcium 9.3 mg/dL (8.4-10.2) Magnesium Total Bilirubin 0.3 mg/dL (0.2-1.3) AST 35 U/L (17-59) ALT 37 U/L (6-50) Alkaline Phosphatase 77 U/L (38-126) Troponin I < 0.012 ng/mL < 0.012 ng/mL (0.000-0.034) (0.000-0.034) Total Protein 7.5 g/dL (6.3-8.2) Albumin 4.4 g/dL (3.5-5.1) Blood Type O Positive Antibody Screen Negative 08/24/25 05:58 WBC 8.2 K/mm3 (4.5-10.0) RBC 3.30 L M/mm3 (4.6-6.20) Hgb 10.6 L g/dL (14.0-18.0) Hct 31.1 L % (42.0-52.0) MCV 94.2 fl (80-100) MCH 32.1 pg (26-34) MCHC 34.1 g/dl (32-36) RDW 12.3 % (11.5-14.5) Plt Count 287 k/mm3 (150-375) MPV 8.8 fl (7.4-10.4) Immature Gran % (Auto) 1.0 H % (0-0.5) Neut % (Auto) 63.6 % (45.5-73.1) Lymph % (Auto) 23.6 % (18.3-44.2) [place] % (Auto) 9.5 H % (2.6-8.5) Eos % (Auto) 1.3 % (0-4.4) Baso % (Auto) 1.0 % (0.2-1.2) Lymph # (Auto) 1.94 K/mm3 (0.9-3.2) [place] # (Auto) 0.8 H K/mm3 (0.1-0.6) Eos # (Auto) 0.1 K/mm3 (0-0.3) Baso # (Auto) 0.1 K/mm3 (0.0-0.1) Abs Immat Gran (auto) 0.08 H K/mm3 (0.00-0.031) Absolute Neuts (auto) 5.2 K/mm3 (1.3-6.7) Absolute Nucleated RBC 0.000 K/mm3 (0.0-0.012) Nucleated RBC % 0.0 % (0.0-0.2) PT INR APTT Sodium 135 L mmol/L (137-145) Potassium 4.5 mmol/L (3.4-5.0) Chloride 104 mmol/L (98-107) Carbon Dioxide 27 mmol/L (22-30) Anion Gap 4 mmol/L (4-12) BUN 9 mg/dL (9-20) Creatinine 0.89 mg/dL (0.7-1.3) Estim Creat Clear Calc 102 ml/min Estimated GFR > 60 (59 - ) Glucose 101 mg/dL (65-110) Calcium 8.8 mg/dL (8.4-10.2) Magnesium 2.3 mg/dL (1.6-2.3) Total Bilirubin AST ALT Alkaline Phosphatase Troponin I Total Protein Albumin Blood Type Antibody Screen Patient hx anesthesia problems: none Family hx anesthesia problems: none Results Review: All pre-operative results and documents have been reviewed as part of the pre-operative evaluation. [facility] Past Medical History Medical History (Updated 08/24/25 @ 14:02 by Mohit Romero MD) HTN (hypertension) Melena Family History Family History Mother Patient's mother is in good health Father Patient's father is in good health Social History Social History Smoking status: Never smoker Second hand tobacco smoke exposure: No Alcohol intake: current Drinks per week: 28 Substance use: never Lack of Transportation: No Lack of Food: Never True Current Housing: I Have Housing Concerned About Future Housing: No Difficulty Paying Gas/Electric Bills: No Difficulty Paying for Meds: No Currently Unemployed: No Education: Bachelor's Degree Difficulty w/ Childcare or Family Care: No Spiritual care concerns: No Anes - Eval Final PreProcedure Day of Procedure 08/24/25 14:01 Patient weight: normal Heart: regular rate and rhythm Lungs: clear to auscultation Airway: Mallampati scale class II Neurological: alert and oriented Last oral intake: >/= 8 hours ASA classification: II Emergent: no Anesthetic plan: proceed Anesthesia type and monitoring: general GIVS and standard monitoring Results Review: All pre-operative results and documents have been reviewed as part of the pre-operative evaluation. Informed Consent: The patient's anesthetic plan and its attendant risks and benefits were discussed with the patient/family/POA. Questions were solicited and answers provided to the satisfaction of the patient/family/POA.
[2025-08-24] MEDS: BENZOCAINE (*SP) 60 ML SPRAY CAN (HURRICAINE) 1 SPRAY MUCOUS MEM (14:42)
--- NOTE | 2025-08-24 14:52 | S_PTH ---
PATIENT: Harry Romero LOC: [id number] U#:[id number] AGE/SX: 45/M ROOM: 300 RE08/24/[address]: Anton Stacy MD : [id number] BED: 01 DIS: 08/25/2025 SPEC #: [id number] RECD: 08/25/25 06:51 STATUS: GLO RENikki #: [id number] HAYLEE: 08/24/25 14:[address]: Anoop Peterson DEPT: [facility] Surgical RECD BY: Era Kim ENTERED: 08/25/25 06:52 SP TYPE: Surgical OTHR DR: Sukhjinder Villalobos PAAdamC MD Ritchie Brito DO Edmundo A. Rodriguez-Frias, MD Tissues: A - Gastric Biopsy B - Gastric Biopsy Procedures: Hematoxylin and Eosin Stain Gross and Microscopic Level 4
--- NOTE | 2025-08-24 15:04 | P.PNGI_ITS ---
Progress Note: A&P Assessment and Plan (1) Melena: Code(s): K92.1 - Melena Status: Acute Assessment and Plan: Based on the EGD report, the patient has severe erosive esophagitis, which is the likely cause of his bleeding. A superficial gastric ulcer was also noted, but with no signs of recent bleeding. Gastric biopsies were taken to check for H. pylori and the results are pending. The patient is hemodynamically stable and is not at risk for life-threatening bleeding. He can be discharged tomorrow after overnight observation. The patient's medication has been switched from intravenous to oral pantoprazole 40 mg once daily, which he should continue indefinitely. The patient will also receive general anti-reflux information, including the importance of stopping alcohol consumption. Subjective Date/time seen: 08/24/25 15:04 Objective Data Vital Signs Vital Signs: Vital Signs - 24 hr 08/23/25 20:38 08/23/25 23:54 08/24/25 02:24 Temperature 98.1 F 98.4 F Pulse Rate 115 H 81 88 Respiratory Rate 18 18 18 Blood Pressure 149/105 H 133/87 112/81 Pulse Oximetry 100 100 99 Oxygen Delivery Room Air 08/24/25 04:00 08/24/25 05:55 08/24/25 07:32 Temperature 97.5 F L Pulse Rate 89 95 94 Respiratory Rate 18 18 18 Blood Pressure 121/76 122/77 133/97 H Pulse Oximetry 99 100 96 Oxygen Delivery 08/24/25 08:01 08/24/25 09:01 08/24/25 10:01 Temperature Pulse Rate 80 81 80 Respiratory Rate 15 18 20 Blood Pressure 118/80 142/86 H 148/87 H Pulse Oximetry 100 99 100 Oxygen Delivery 08/24/25 11:01 08/24/25 12:03 08/24/25 12:37 Temperature Pulse Rate 79 81 83 Respiratory Rate 20 18 Blood Pressure 133/85 130/87 Pulse Oximetry 100 99 Oxygen Delivery 08/24/25 13:00 08/24/25 13:56 08/24/25 14:55 Temperature 97.5 F L 98.5 F Pulse Rate 76 76 87 Respiratory Rate 18 16 22 H Blood Pressure 135/91 H 142/84 H 153/99 H Pulse Oximetry 100 100 100 Oxygen Delivery Room Air Room Air 08/24/25 15:00 Temperature Pulse Rate 82 Respiratory Rate 20 Blood Pressure 140/88 Pulse Oximetry 99 Oxygen Delivery Room Air Intake/Output Intake/Output: Intake & Output 08/21/25 08/22/25 08/23/25 08/24/25 23:59 23:59 23:59 23:59 Intake Total 2276.3 Balance 2276.3 Meds/Results Medications: Active Medications Generic Name Dose Route Start Last Admin Trade Name Freq PRN Reason Stop Dose Admin Acetaminophen 650 mg 08/24/25 01:19 Acetaminophen 325 Mg Tablet PO Q4H PRN Mild Pain (1-3) or Fever Lactated Ringer's 1,000 mls @ 125 mls/hr 08/24/25 01:20 08/24/25 13:53 Lr - Lactated Ringers Iv IV CONT Infused .Q8H LETY Infusion Lactated Ringer's 1,000 mls @ 150 mls/hr 08/24/25 13:55 08/24/25 14:53 Lr - Lactated Ringers Iv IV CONT 150 mls/hr .Q6H40M LETY Infusion Ondansetron HCl 4 mg 08/24/25 01:19 Ondansetron Inj 4 Mg/2 Ml Vial IV PUSH Q4H PRN Nausea Pantoprazole Sodium 40 mg 08/25/25 09:00 Pantoprazole 40 Mg Tablet PO QAM [facility] Radiology Results: ITS Impressions Chest X-Ray 08/24/25 06:15 IMPRESSION: 1. No acute cardiopulmonary findings given portable technique. Labs Labs: Laboratory Results - last 24 hr 08/23/25 08/23/25 08/24/25 20:49 23:53 01:52 WBC 12.2 H RBC 3.60 L Hgb 11.5 L D 10.5 L Hct 33.6 L 30.6 L MCV 93.3 MCH 31.9 MCHC 34.2 RDW 12.3 Plt Count 333 MPV 9.0 Immature Gran % (Auto) 1.1 H Neut % (Auto) 73.5 H Lymph % (Auto) 16.6 L [place] % (Auto) 7.6 Eos % (Auto) 0.5 Baso % (Auto) 0.7 Lymph # (Auto) 2.02 [place] # (Auto) 0.9 H Eos # (Auto) 0.1 Baso # (Auto) 0.1 Abs Immat Gran (auto) 0.14 H Absolute Neuts (auto) 9.0 H Absolute Nucleated RBC 0.000 Nucleated RBC % 0.0 PT 14.3 INR 1.1 APTT 27.6 Sodium 135 L Potassium 4.2 Chloride 101 Carbon Dioxide 25 Anion Gap 9 BUN 10 Creatinine 0.80 Estim Creat Clear Calc 113 Estimated GFR > 60 Glucose 109 Calcium 9.3 Magnesium Total Bilirubin 0.3 AST 35 ALT 37 Alkaline Phosphatase 77 Troponin I < 0.012 < 0.012 Total Protein 7.5 Albumin 4.4 Blood Type O Positive Antibody Screen Negative 08/24/25 05:58 WBC 8.2 RBC 3.30 L Hgb 10.6 L Hct 31.1 L MCV 94.2 MCH 32.1 MCHC 34.1 RDW 12.3 Plt Count 287 MPV 8.8 Immature Gran % (Auto) 1.0 H Neut % (Auto) 63.6 Lymph % (Auto) 23.6 [place] % (Auto) 9.5 H Eos % (Auto) 1.3 Baso % (Auto) 1.0 Lymph # (Auto) 1.94 [place] # (Auto) 0.8 H Eos # (Auto) 0.1 Baso # (Auto) 0.1 Abs Immat Gran (auto) 0.08 H Absolute Neuts (auto) 5.2 Absolute Nucleated RBC 0.000 Nucleated RBC % 0.0 PT INR APTT Sodium 135 L Potassium 4.5 Chloride 104 Carbon Dioxide 27 Anion Gap 4 BUN 9 Creatinine 0.89 Estim Creat Clear Calc 102 Estimated GFR > 60 Glucose 101 Calcium 8.8 Magnesium 2.3 Total Bilirubin AST ALT Alkaline Phosphatase Troponin I Total Protein Albumin Blood Type Antibody Screen
[2025-08-25] VITALS: PULSE 61
[2025-08-25] MEDS: LACTATED RINGERS 1,000 ML 125 ML IV CONT (01:10)
[2025-08-25 04:25] VITALS: BP 124/77; PULSE 74; RESP 18; TEMP 36.2; O2SAT 99
[2025-08-25 08:00] VITALS: PULSE 68
[2025-08-25] MEDS: PANTOPRAZOLE 40 MG TABLET PO (08:10)
[2025-08-25 08:58] LABS: Hematocrit 31.3 % (42.0-52.0); Hemoglobin 10.3 g/dL (14.0-18.0); Immature Granulocyte Percent A 0.7 % (0-0.5); Lymphocytes Absolute Auto 1.47 K/mm3 (0.9-3.2); Mean Corpuscular HGB Conc 32.9 g/dl (32-36); Mean Corpuscular Hemoglobin 31.9 pg (26-34); Mean Corpuscular Volume 96.9 fl (80-100); Nucleated Red Blood Cells Absolute Auto 0.000 K/mm3 (0.0-0.012); Nucleated Red Blood Cells Perc 0.0 % (0.0-0.2); Platelet Count Result 286 k/mm3 (150-375); Red Blood Count 3.23 M/mm3 (4.6-6.20); White Blood Count 8.2 K/mm3 (4.5-10.0)
[2025-08-25 09:19] LABS: Alanine Aminotransferase 38 U/L (6-50); Albumin Level 3.6 g/dL (3.5-5.1); Alkaline Phosphatase 62 U/L (38-126); Anion Gap 5 mmol/L (4-12); Aspartate Amino Transferase 32 U/L (17-59); Bilirubin,Total 0.3 mg/dL (0.2-1.3); Blood Urea Nitrogen 8 mg/dL (9-20); Calcium 8.7 mg/dL (8.4-10.2); Carbon Dioxide 27 mmol/L (22-30); Chloride 104 mmol/L (98-107); Estimated CRCL calculation 108 ml/min; Estimated Glomerular Filt Rate > 60; Glucose 100 mg/dL (65-110); Potassium 4.2 mmol/L (3.4-5.0); Sodium 136 mmol/L (137-145); Total Protein 6.2 g/dL (6.3-8.2)
--- NOTE | 2025-08-25 11:22 | P.DS_ITS ---
DS: Admitting Diagnosis Discharge Date 08/25/2025 Admitting Diagnosis Upper GI bleed, anemia DS: Discharge Diagnosis Discharge Diagnosis (1) Upper GI bleed: Code(s): K92.2 - Gastrointestinal hemorrhage, unspecified Status: Acute Assessment and Plan: * Continue to trend hemoglobin * Continue Protonix 40 mg IV b.i.d. * Continue lactated Ringer's at 125 cc/hour * Zofran and Tylenol p.r.n * Monitor for bloody bowel movements,chest pain,SOB or dizziness/lightheadedness * DVT Px: SCDs * Avoid anti-coagulations * NPO for EGD * EGD results: * Reflux esophagitis, hiatal hernia, unspecified gastric ulcer * GI recommends switching IV to oral pantoprazole 40 mg daily * Follow-up GI clinic in the outpatient setting * Avoid caffeine, spicy foods, chocolate, mints, alcohol, rich foods, red sauces * Discharge likely tomorrow (2) Anemia: Code(s): D64.9 - Anemia, unspecified Status: Acute Assessment and Plan: * See above (3) Alcohol use: Code(s): F10.90 - Alcohol use, unspecified, uncomplicated Status: Acute Assessment and Plan: * The patient has been counseled about his alcohol use. Advised to cut down or abstain entirely, the patient reported understanding and agreed. (4) Essential hypertension: Code(s): I10 - Essential (primary) hypertension Status: Acute Assessment and Plan: * Patient's blood pressure was reviewed on 08/24 * Blood pressure remains well controlled * Will hold his [employer] lisinopril in the setting of GI bleed DS: Summary Hospital Course Reason for hospitalization: Dark stool Hospital Course: 45-year-old male with PMH alcohol use, GERD, hypertension, history of transaminitis presents to [facility] ER on 08/24/2025 reporting dark stools starting 3 days prior. He has never had this before, does not know of peptic ulcer disease history, has never had endoscopy. On the day of admission developed burning and pain on the left side of his stomach just below the ribs. He did not vomit, denied fever, denied chest pain otherwise. Hemoglobin 11.5, it was 16.1 on 04/07/2025. At that time he had mild transaminitis with AST 50, ALT 50, was seen by his PCP who believed this to be due to alcohol use. The patient reports drinking about 4 beers per day. He has a history of GERD but does not take a PPI. GI consulted from the ER. He was given Protonix 80 mg IV x1, 1 L lactated Ringer bolus, sucralfate 1000 mg p.o. x1. Afterwards, his pain had resolved and he was resting comfortably. GI consulted regarding possible upper GI bleed. Plan for EGD with a d ifferential of an ulcer, AVM, esophageal lesion. Planning continuing IV Protonix and fluids while hospitalized with monitoring of more signs of bleeding. EGD performed on 08/24 which showed reflux esophagitis grade C, a medium hiatal hernia, moderate diffuse chronic superficial gastritis, and a single superficial benign ulcer measuring 6 mm. GI agree with diagnosis of severe erosive esophagitis which could explain cause of bleeding. Patient is otherwise hemodynamically stable at this point. No acute signs of bleeding at this point. He can be switched from IV to oral pantoprazole 40 mg once daily which should be continued indefinitely. Patient is otherwise amenable for discharge on 08/25. Hemoglobin stable and vital signs remained stable. Plan for discharge home at this time with appropriate follow-up in the outpatient setting with GI and continuation of his pantoprazole 40 mg daily. Status at Discharge Functional status at discharge: independent ambulation Overall status at discharge: patient is back to baseline Time Spent with Patient Time attestation: Total time spent providing and/or coordinating discharge services: Exam Const: General: comfortable and no acute distress Other: A&O x3 HENMT: Mouth: Yes moist mucous membranes Other: No lesions Eyes: Pupils: Equal, round and reactive pupils present Neck: Neck: supple Resp: Effort & Inspection: normal respiratory effort Auscultation: clear to auscultation bilaterally Cardio: Rate: regular rate Rhythm: regular rhythm Heart sounds: no murmurs GI: Inspection: non-distended Auscultation: normal bowel sounds : General: Yes bladder normal to palpation Neuro: Cranial nerves: Yes Equal, round and reactive pupils present Motor exam (neuro): 5/5 motor strength present throughout Extrem: General: no edema DS: Data Data Completed and Pending Pending studies at discharge: Pending at discharge 08/24/25 14:52 Surgical [PTH] Routine Labs on day of discharge: Labs from last 24 hours 08/25/25 08:27 WBC 8.2 RBC 3.23 L Hgb 10.3 L Hct 31.3 L MCV 96.9 MCH 31.9 MCHC 32.9 RDW 12.5 Plt Count 286 MPV 9.1 Immature Gran % (Auto) 0.7 H Neut % (Auto) 70.6 Lymph % (Auto) 17.9 L [place] % (Auto) 8.3 Eos % (Auto) 1.6 Baso % (Auto) 0.9 Lymph # (Auto) 1.47 [place] # (Auto) 0.7 H Eos # (Auto) 0.1 Baso # (Auto) 0.1 Abs Immat Gran (auto) 0.06 H Absolute Neuts (auto) 5.8 Absolute Nucleated RBC 0.000 Nucleated RBC % 0.0 Sodium 136 L Potassium 4.2 Chloride 104 Carbon Dioxide 27 Anion Gap 5 BUN 8 L Creatinine 0.84 Estim Creat Clear Calc 108 Estimated GFR > 60 Glucose 100 Calcium 8.7 Total Bilirubin 0.3 AST 32 ALT 38 Alkaline Phosphatase 62 Total Protein 6.2 L Albumin 3.6 Discharge Plan Discharge Attending physician on discharge: Anton Stacy Consulting providers: Sukhjinder Villalobos; Raffi Merritt Discharging Clinician: Sukhjinder Villalobos Anticipated Discharge Date/Time: 08/25/25 11:21 Patient Disposition: Home Activity: as tolerated Diet: regular Discharge Instructions: Discharge disposition: Home Take medications as prescribed. You will be started on pantoprazole 40 mg to be taken once daily. Continue this indefinitely. Monitor blood pressures Take caution while standing, rising, or moving Change positions slowly taking a break between each position change If you standing feel dizzy sit back down and take a break Encouraged to continue with yearly vaccinations Return to the emergency department if he developed sudden shortness of breath, chest pain, nausea, vomiting, upset stomach or intractable diarrhea Return to the emergency department if you develop fever greater than 101.5 Follow-up with the primary care physician within 1-2 weeks Follow-up with Dr. Finch the [employer] clerk in 1 week Thank you for [facility] for your healthcare needs Patient Instructions: Antibiotic Form Patient Language: Turkish Stand Alone Forms: General Discharge Information Follow-up/Referrals: Ritchie Noe DO [Primary Care Provider, Internal Medicine] Raffi Merritt MD [Physician, Gastroenterology] Discharge Medications: New pantoprazole 40 mg tablet,delayed release (DR/EC) 40 mg PO QAM 28 Days Qty: 28 0RF Continued lisinopril 20 mg tablet 20 mg PO DAILY Qty: 90 3RF Date of admission: 08/24/25 08:57 Primary Care Provider: Ritchie Noe Admitting Provider: Mary Lane Attending physician on admission: Mary Lane Condition: Stable Quality VTE Prophylaxis VTE prophylaxis: mechanical ordered
--- NOTE | 2025-08-25 16:57 | WPDGIPROGNO ---
Progress Note: A&P Assessment and Plan (1) Erosive esophagitis: Code(s): K22.10 - Ulcer of esophagus without bleeding Status: Acute Assessment and Plan: non bleeding gastric ulcer and esophagitis he can go home with daily protonix, will need [facility] pending bx no more alcohol, avoid nsaid's (2) Melena: Code(s): K92.1 - Melena Status: Acute Assessment and Plan: no more episodes (3) Upper GI bleed: Code(s): K92.2 - Gastrointestinal hemorrhage, unspecified Status: Acute (4) Alcohol use: Code(s): F10.90 - Alcohol use, unspecified, uncomplicated Status: Acute Assessment and Plan: advised to stop (5) Acute blood loss anemia: Code(s): D62 - Acute posthemorrhagic anemia Status: Acute Assessment and Plan: hgb stable since admission Subjective Date/time seen: 08/25/25 11:05 Interval history: egd with erosive esophagitis and small non bleeding gastric ulcer, pending bx no more bleeding going home today Review of Systems Review of Systems: All systems reviewed & are unremarkable except as noted in HPI and below Exam Const: General: comfortable and no acute distress HENMT: Face/Nose/Sinus: Normal nares present Eyes: General: appearance normal, both eyes and all related structures Neck: Neck: no JVD Resp: Auscultation: clear to auscultation bilaterally Cardio: Rate: regular rate Rhythm: regular rhythm GI: Inspection: non-distended GI Palp: Yes Soft to palpation Skin: General skin exam: normal color Neuro: Speech: normal speech Extrem: General: normal to inspection Psych: Mental Status: mental status grossly normal Objective Data Vital Signs Vital Signs: Vital Signs - 24 hr 08/24/25 19:25 08/24/25 20:04 08/25/25 00:00 Temperature 97 F L Pulse Rate 69 73 61 Respiratory Rate 18 Blood Pressure 126/67 Pulse Oximetry 98 Oxygen Delivery 08/25/25 04:25 08/25/25 08:00 08/25/25 08:00 Temperature 97.2 F L Pulse Rate 74 68 Respiratory Rate 18 Blood Pressure 124/77 Pulse Oximetry 99 Oxygen Delivery Room Air Intake/Output Intake/Output: Intake & Output 08/22/25 08/23/25 08/24/25 08/25/25 23:59 23:59 23:59 23:59 Intake Total 2826.3 1250 Balance 2826.3 1250 Meds/Results Radiology Results: ITS Impressions Chest X-Ray 08/24/25 06:15 IMPRESSION: 1. No acute cardiopulmonary findings given portable technique. Labs Labs: Laboratory Results - last 24 hr 08/25/25 08:27 WBC 8.2 RBC 3.23 L Hgb 10.3 L Hct 31.3 L MCV 96.9 MCH 31.9 MCHC 32.9 RDW 12.5 Plt Count 286 MPV 9.1 Immature Gran % (Auto) 0.7 H Neut % (Auto) 70.6 Lymph % (Auto) 17.9 L [place] % (Auto) 8.3 Eos % (Auto) 1.6 Baso % (Auto) 0.9 Lymph # (Auto) 1.47 [place] # (Auto) 0.7 H Eos # (Auto) 0.1 Baso # (Auto) 0.1 Abs Immat Gran (auto) 0.06 H Absolute Neuts (auto) 5.8 Absolute Nucleated RBC 0.000 Nucleated RBC % 0.0 Sodium 136 L Potassium 4.2 Chloride 104 Carbon Dioxide 27 Anion Gap 5 BUN 8 L Creatinine 0.84 Estim Creat Clear Calc 108 Estimated GFR > 60 Glucose 100 Calcium 8.7 Total Bilirubin 0.3 AST 32 ALT 38 Alkaline Phosphatase 62 Total Protein 6.2 L Albumin 3.6
== END 2025-08-25 11:45 | disposition home or self-care (01) ==
LOC: ANHED 08-24 00:13 → ANH3MEDSUR 08-24 02:01
PROVIDERS: Internal Medicine Gastroenterology; Physician Assistant; Admitting Provider General Practice; Emergency Provider Student in an Organized Health Care Education/Training Program; PCP Internal Medicine; Visit Provider General Practice
PROC: 0DJ08ZZ Inspection of Upper Intestinal Tract, Via Natural or Artificial Opening Endoscopic (ICD-10-PCS; CPT 43239; principal; 2025-08-24 11:30)
DX: K25.9 Gastric ulcer, unspecified as acute or chronic, without hemorrhage or perforation (principal); K29.50 Unspecified chronic gastritis without bleeding; K44.9 Diaphragmatic hernia without obstruction or gangrene; K22.10 Ulcer of esophagus without bleeding; K92.1 Melena; K21.00 Gastro-esophageal reflux disease with esophagitis, without bleeding; D62 Acute posthemorrhagic anemia; I10 Essential (primary) hypertension; R00.0 Tachycardia, unspecified; F10.90 Alcohol use, unspecified, uncomplicated; R74.01 Elevation of levels of liver transaminase levels
CPT/HCPCS: 43239; 36415; 71045; 80048; 80053; 83735; 84484; 85014; 85018; 85025; 85610; 85730; 86850; 86900; 86901; 88305; 93005; 96361; 96374; 99285; A9270; G0378; J2003; J2470; J2704; J7120